=== PATIENT | female | born 1950 | race Caucasian/White ===

== ENCOUNTER 2017-10-13 07:16 | Outpatient (CLI) | payer OTHER ==
[~2017-10-13 07:16] MED LIST: ACTIGALL300 MG; LYRICA100 MG; PLAVIX75 MG; PROTONIX20 MG; SYNTHROID75 MCG; TUSSIONEX PENNKI5 ML PO; ULTRACET PO; XANAX XR0.5 MG; ZETIA10 MG
== END 2017-10-13 07:25 | disposition home or self-care (01) ==
LOC: MAMO-SONO 07:16
DX: R10.31 Right lower quadrant pain (principal); E07.89 Other specified disorders of thyroid; I65.29 Occlusion and stenosis of unspecified carotid artery; E78.2 Mixed hyperlipidemia; E03.8 Other specified hypothyroidism; K59.09 Other constipation; R10.0 Acute abdomen; R10.11 Right upper quadrant pain; R10.13 Epigastric pain; D64.89 Other specified anemias; M81.0 Age-related osteoporosis without current pathological fracture; M62.838 Other muscle spasm; M51.37 Other intervertebral disc degeneration, lumbosacral region; M51.27 Other intervertebral disc displacement, lumbosacral region; Z68.26 Body mass index [BMI] 26.0-26.9, adult

== ENCOUNTER 2018-02-09 10:24 | Outpatient (CLI) | payer OTHER | END 2018-02-09 19:27 | disposition home or self-care (01) | LOC: LAB 10:24 | DX: I65.29 Occlusion and stenosis of unspecified carotid artery (principal); E78.2 Mixed hyperlipidemia; E03.8 Other specified hypothyroidism; K59.09 Other constipation; R10.0 Acute abdomen; D64.89 Other specified anemias; M81.0 Age-related osteoporosis without current pathological fracture; M62.838 Other muscle spasm; M51.37 Other intervertebral disc degeneration, lumbosacral region; M51.27 Other intervertebral disc displacement, lumbosacral region; Z68.26 Body mass index [BMI] 26.0-26.9, adult; R80.8 Other proteinuria; N18.2 Chronic kidney disease, stage 2 (mild); Z80.3 Family history of malignant neoplasm of breast; D47.2 Monoclonal gammopathy; I10 Essential (primary) hypertension; I65.21 Occlusion and stenosis of right carotid artery; D51.1 Vitamin B12 deficiency anemia due to selective vitamin B12 malabsorption with proteinuria; D50.8 Other iron deficiency anemias; D51.8 Other vitamin B12 deficiency anemias; C90.00 Multiple myeloma not having achieved remission ==

== ENCOUNTER 2018-02-15 11:42 | Outpatient (CLI) | payer OTHER | END 2018-02-15 15:00 | disposition home or self-care (01) | LOC: LAB 11:42 | DX: I65.29 Occlusion and stenosis of unspecified carotid artery (principal); E78.2 Mixed hyperlipidemia; E03.8 Other specified hypothyroidism; K59.09 Other constipation; R10.11 Right upper quadrant pain; R10.31 Right lower quadrant pain; D64.89 Other specified anemias; M81.0 Age-related osteoporosis without current pathological fracture; M62.838 Other muscle spasm; M51.37 Other intervertebral disc degeneration, lumbosacral region; M51.27 Other intervertebral disc displacement, lumbosacral region; Z68.26 Body mass index [BMI] 26.0-26.9, adult; R80.8 Other proteinuria; N18.2 Chronic kidney disease, stage 2 (mild) ==

== ENCOUNTER 2018-04-22 11:08 | Outpatient (CLI) | payer OTHER | END 2018-04-22 11:22 | disposition home or self-care (01) | LOC: MAMO-SONO 11:08 | DX: Z12.31 Encounter for screening mammogram for malignant neoplasm of breast (principal); Z87.898 Personal history of other specified conditions; N63.10 Unspecified lump in the right breast, unspecified quadrant; N63.20 Unspecified lump in the left breast, unspecified quadrant; D51.1 Vitamin B12 deficiency anemia due to selective vitamin B12 malabsorption with proteinuria; I65.21 Occlusion and stenosis of right carotid artery; I10 Essential (primary) hypertension; E03.8 Other specified hypothyroidism; D47.2 Monoclonal gammopathy; Z80.3 Family history of malignant neoplasm of breast ==

== ENCOUNTER 2018-06-10 10:29 | Outpatient (CLI) | payer OTHER | END 2018-06-10 13:11 | disposition home or self-care (01) | LOC: LAB 10:29 | DX: R80.3 Bence Jones proteinuria (principal); N18.2 Chronic kidney disease, stage 2 (mild); R80.8 Other proteinuria; I10 Essential (primary) hypertension; D64.89 Other specified anemias; N18.3 Chronic kidney disease, stage 3 (moderate); E10.9 Type 1 diabetes mellitus without complications; E21.2 Other hyperparathyroidism; E83.39 Other disorders of phosphorus metabolism; E55.9 Vitamin D deficiency, unspecified ==

== ENCOUNTER 2018-06-10 12:09 | Outpatient (CLI) | payer OTHER | END 2018-06-10 16:30 | disposition home or self-care (01) | LOC: RAD 12:09 | DX: R80.8 Other proteinuria (principal); K76.0 Fatty (change of) liver, not elsewhere classified; M81.0 Age-related osteoporosis without current pathological fracture; M54.6 Pain in thoracic spine; M47.816 Spondylosis without myelopathy or radiculopathy, lumbar region ==

== ENCOUNTER 2018-09-17 09:30 | Outpatient (CLI) | payer OTHER | END 2018-09-17 17:01 | disposition home or self-care (01) | LOC: LAB 09:30 | DX: E03.8 Other specified hypothyroidism (principal); I10 Essential (primary) hypertension; Z80.3 Family history of malignant neoplasm of breast; I65.21 Occlusion and stenosis of right carotid artery; D51.1 Vitamin B12 deficiency anemia due to selective vitamin B12 malabsorption with proteinuria; D50.8 Other iron deficiency anemias; C90.00 Multiple myeloma not having achieved remission; D47.2 Monoclonal gammopathy ==

== ENCOUNTER → 2018-09-21 | Emergency (ER) | payer OTHER ==
[~2018-09-21] VITALS: Ht 160 cm; Wt 68.0 kg
== END | disposition home or self-care (01) ==
LOC: ER 19:34
DX: J06.9 Acute upper respiratory infection, unspecified (principal)

== ENCOUNTER 2019-03-25 12:50 | Outpatient (CLI) | payer OTHER | END 2019-03-25 12:55 | disposition home or self-care (01) | LOC: LAB 12:50 | DX: N20.0 Calculus of kidney (principal) ==

== ENCOUNTER 2019-03-31 09:48 | Outpatient (CLI) | payer OTHER | END 2019-03-31 10:04 | disposition home or self-care (01) | LOC: MRI 09:48 | DX: C71.9 Malignant neoplasm of brain, unspecified (principal); G30.1 Alzheimer's disease with late onset | CPT/HCPCS: 70553; A9575 ==

== ENCOUNTER → 2019-04-30 09:20 | Outpatient (CLI) | payer OTHER | END | disposition home or self-care (01) | LOC: LAB 09:20 | DX: D50.8 Other iron deficiency anemias (principal); I10 Essential (primary) hypertension; Z80.3 Family history of malignant neoplasm of breast; D47.2 Monoclonal gammopathy; E03.8 Other specified hypothyroidism; I65.21 Occlusion and stenosis of right carotid artery; D51.1 Vitamin B12 deficiency anemia due to selective vitamin B12 malabsorption with proteinuria; D51.8 Other vitamin B12 deficiency anemias; E55.9 Vitamin D deficiency, unspecified; K90.89 Other intestinal malabsorption; R97.0 Elevated carcinoembryonic antigen [CEA] ==

== ENCOUNTER 2019-05-09 10:56 | Outpatient (CLI) | payer OTHER | END 2019-05-09 11:08 | disposition home or self-care (01) | LOC: LAB 10:56 | DX: I65.29 Occlusion and stenosis of unspecified carotid artery (principal); I67.2 Cerebral atherosclerosis; E03.8 Other specified hypothyroidism; H11.32 Conjunctival hemorrhage, left eye; K59.00 Constipation, unspecified; N18.2 Chronic kidney disease, stage 2 (mild); R80.8 Other proteinuria; D64.89 Other specified anemias; M81.0 Age-related osteoporosis without current pathological fracture; M62.838 Other muscle spasm; M51.37 Other intervertebral disc degeneration, lumbosacral region; M51.27 Other intervertebral disc displacement, lumbosacral region; D32.1 Benign neoplasm of spinal meninges; Z68.26 Body mass index [BMI] 26.0-26.9, adult; N39.0 Urinary tract infection, site not specified; E55.9 Vitamin D deficiency, unspecified; D55.0 Anemia due to glucose-6-phosphate dehydrogenase [G6PD] deficiency; D50.8 Other iron deficiency anemias ==

== ENCOUNTER 2019-06-29 13:37 | Outpatient (CLI) | payer OTHER | END 2019-06-29 13:44 | disposition home or self-care (01) | LOC: MAMO-SONO 13:37 | DX: I67.2 Cerebral atherosclerosis (principal); E78.2 Mixed hyperlipidemia; E03.8 Other specified hypothyroidism; H11.32 Conjunctival hemorrhage, left eye; K59.00 Constipation, unspecified; R10.13 Epigastric pain; R10.812 Left upper quadrant abdominal tenderness; I65.29 Occlusion and stenosis of unspecified carotid artery; N18.2 Chronic kidney disease, stage 2 (mild); R80.8 Other proteinuria; D64.89 Other specified anemias; M81.0 Age-related osteoporosis without current pathological fracture; M62.838 Other muscle spasm; M51.37 Other intervertebral disc degeneration, lumbosacral region; M51.27 Other intervertebral disc displacement, lumbosacral region; D32.1 Benign neoplasm of spinal meninges; Z68.25 Body mass index [BMI] 25.0-25.9, adult; N60.21 Fibroadenosis of right breast; N60.22 Fibroadenosis of left breast; Z12.31 Encounter for screening mammogram for malignant neoplasm of breast ==

== ENCOUNTER 2019-07-01 09:55 | Outpatient (CLI) | payer OTHER | END 2019-07-01 10:00 | disposition home or self-care (01) | LOC: SONOGRAMA 09:55 | DX: R10.812 Left upper quadrant abdominal tenderness (principal); N18.2 Chronic kidney disease, stage 2 (mild); M51.27 Other intervertebral disc displacement, lumbosacral region; M51.37 Other intervertebral disc degeneration, lumbosacral region; K59.09 Other constipation; E03.8 Other specified hypothyroidism; E78.2 Mixed hyperlipidemia; H11.32 Conjunctival hemorrhage, left eye; R10.13 Epigastric pain; R80.8 Other proteinuria; D64.89 Other specified anemias; I65.29 Occlusion and stenosis of unspecified carotid artery; M81.0 Age-related osteoporosis without current pathological fracture; M62.838 Other muscle spasm; I67.2 Cerebral atherosclerosis; D32.1 Benign neoplasm of spinal meninges; Z68.25 Body mass index [BMI] 25.0-25.9, adult; N60.21 Fibroadenosis of right breast; N60.22 Fibroadenosis of left breast ==

== ENCOUNTER 2019-07-01 10:27 | Outpatient (CLI) | payer OTHER | END 2019-07-01 10:33 | disposition home or self-care (01) | LOC: LAB 10:27 | DX: I67.2 Cerebral atherosclerosis (principal); I65.29 Occlusion and stenosis of unspecified carotid artery; E78.2 Mixed hyperlipidemia; E03.8 Other specified hypothyroidism; H11.32 Conjunctival hemorrhage, left eye; K59.00 Constipation, unspecified; R10.13 Epigastric pain; R10.812 Left upper quadrant abdominal tenderness; N18.2 Chronic kidney disease, stage 2 (mild); R80.8 Other proteinuria; D64.89 Other specified anemias; M81.0 Age-related osteoporosis without current pathological fracture; M62.838 Other muscle spasm; M51.37 Other intervertebral disc degeneration, lumbosacral region; M51.27 Other intervertebral disc displacement, lumbosacral region; D32.1 Benign neoplasm of spinal meninges; Z68.25 Body mass index [BMI] 25.0-25.9, adult; N39.0 Urinary tract infection, site not specified; E16.8 Other specified disorders of pancreatic internal secretion; R10.84 Generalized abdominal pain ==

== ENCOUNTER 2019-07-12 10:01 | Outpatient (CLI) | payer OTHER | END 2019-07-12 15:00 | disposition home or self-care (01) | LOC: OFIC 805 10:01 | DX: H93.13 Tinnitus, bilateral (principal) ==

== ENCOUNTER 2019-09-06 09:23 | Outpatient (CLI) | payer OTHER | END 2019-09-06 16:00 | disposition home or self-care (01) | LOC: OFIC 805 09:23 | DX: H93.13 Tinnitus, bilateral (principal); H90.3 Sensorineural hearing loss, bilateral ==

== ENCOUNTER 2019-10-04 09:10 | Outpatient (CLI) | payer OTHER | END 2019-10-04 15:03 | disposition home or self-care (01) | LOC: OFIC 805 09:10 | PROVIDERS: ATTEND Otolaryngology | DX: H90.0 Conductive hearing loss, bilateral (principal) ==

== ENCOUNTER → 2019-10-07 09:39 | Outpatient (CLI) | payer OTHER | END | disposition home or self-care (01) | LOC: LAB 09:39 | PROVIDERS: ATTEND Internal Medicine | DX: I65.29 Occlusion and stenosis of unspecified carotid artery (principal); I67.2 Cerebral atherosclerosis; E78.2 Mixed hyperlipidemia; E03.8 Other specified hypothyroidism; H11.32 Conjunctival hemorrhage, left eye; K59.00 Constipation, unspecified; R10.13 Epigastric pain; R10.812 Left upper quadrant abdominal tenderness; N18.2 Chronic kidney disease, stage 2 (mild); R80.8 Other proteinuria; D64.89 Other specified anemias; M81.0 Age-related osteoporosis without current pathological fracture; M62.838 Other muscle spasm; M51.37 Other intervertebral disc degeneration, lumbosacral region; M51.27 Other intervertebral disc displacement, lumbosacral region; D32.1 Benign neoplasm of spinal meninges; Z68.25 Body mass index [BMI] 25.0-25.9, adult; N39.0 Urinary tract infection, site not specified; E16.8 Other specified disorders of pancreatic internal secretion; R10.84 Generalized abdominal pain ==

== ENCOUNTER 2019-10-18 10:40 | Outpatient (CLI) | payer OTHER | END 2019-10-18 10:44 | disposition home or self-care (01) | LOC: SONOGRAMA 10:40 → MAMO-SONO 11:15 | PROVIDERS: ATTEND Otolaryngology | DX: E03.8 Other specified hypothyroidism (principal); E04.2 Nontoxic multinodular goiter ==

== ENCOUNTER → 2019-10-26 11:14 | Outpatient (CLI) | payer OTHER | END | disposition home or self-care (01) | LOC: LAB 11:14 | PROVIDERS: ATTEND Psychiatry & Neurology Neurology | DX: D50.8 Other iron deficiency anemias (principal); D55.0 Anemia due to glucose-6-phosphate dehydrogenase [G6PD] deficiency; N39.0 Urinary tract infection, site not specified ==

== ENCOUNTER → 2019-11-08 09:24 | Outpatient (CLI) | payer OTHER | END | disposition home or self-care (01) | LOC: LAB 09:24 | PROVIDERS: ATTEND Internal Medicine Hematology & Oncology | DX: D50.8 Other iron deficiency anemias (principal); I10 Essential (primary) hypertension; D51.8 Other vitamin B12 deficiency anemias; D47.2 Monoclonal gammopathy; C90.00 Multiple myeloma not having achieved remission; Z80.3 Family history of malignant neoplasm of breast; E03.8 Other specified hypothyroidism; I65.21 Occlusion and stenosis of right carotid artery; E55.9 Vitamin D deficiency, unspecified; D51.1 Vitamin B12 deficiency anemia due to selective vitamin B12 malabsorption with proteinuria ==

== ENCOUNTER 2019-11-23 10:17 | Outpatient (CLI) | payer OTHER | END 2019-11-23 10:25 | disposition home or self-care (01) | LOC: RAD 10:17 | DX: M17.0 Bilateral primary osteoarthritis of knee (principal) ==

== ENCOUNTER 2019-12-06 09:12 | Outpatient (CLI) | payer OTHER | END 2019-12-06 09:21 | disposition home or self-care (01) | LOC: MRI 09:12 | PROVIDERS: ATTEND Specialist | DX: M17.12 Unilateral primary osteoarthritis, left knee (principal) | CPT/HCPCS: 73718; 73721 ==

== ENCOUNTER → 2020-01-19 09:47 | Outpatient (CLI) | payer OTHER | END | disposition home or self-care (01) | LOC: LAB 09:47 | PROVIDERS: ATTEND Obstetrics & Gynecology | DX: N39.0 Urinary tract infection, site not specified (principal) ==

== ENCOUNTER 2020-02-24 09:43 | Outpatient (CLI) | payer OTHER | END 2020-02-24 09:53 | disposition home or self-care (01) | LOC: LAB 09:43 | DX: D50.8 Other iron deficiency anemias (principal); D55.0 Anemia due to glucose-6-phosphate dehydrogenase [G6PD] deficiency; N39.0 Urinary tract infection, site not specified ==

== ENCOUNTER → 2020-03-20 10:42 | Outpatient (CLI) | payer OTHER | END | disposition home or self-care (01) | LOC: LAB 10:42 | PROVIDERS: ATTEND Internal Medicine | DX: D64.89 Other specified anemias (principal); R10.84 Generalized abdominal pain; I65.29 Occlusion and stenosis of unspecified carotid artery; I67.2 Cerebral atherosclerosis; E78.2 Mixed hyperlipidemia; E03.8 Other specified hypothyroidism; H11.32 Conjunctival hemorrhage, left eye; R74.8 Abnormal levels of other serum enzymes; R94.5 Abnormal results of liver function studies; N18.2 Chronic kidney disease, stage 2 (mild); R80.8 Other proteinuria; M81.0 Age-related osteoporosis without current pathological fracture; M62.838 Other muscle spasm; M51.27 Other intervertebral disc displacement, lumbosacral region; D32.1 Benign neoplasm of spinal meninges; Z68.25 Body mass index [BMI] 25.0-25.9, adult; N39.0 Urinary tract infection, site not specified; R73.01 Impaired fasting glucose ==

== ENCOUNTER 2020-03-29 09:36 | Outpatient (CLI) | payer OTHER | END 2020-03-29 15:00 | disposition home or self-care (01) | LOC: LAB 09:36 | PROVIDERS: ATTEND Internal Medicine | DX: E03.8 Other specified hypothyroidism (principal); I65.29 Occlusion and stenosis of unspecified carotid artery; I67.2 Cerebral atherosclerosis; E78.2 Mixed hyperlipidemia; H11.32 Conjunctival hemorrhage, left eye; K59.09 Other constipation; R74.8 Abnormal levels of other serum enzymes; R94.5 Abnormal results of liver function studies; N18.2 Chronic kidney disease, stage 2 (mild); R80.8 Other proteinuria; D64.89 Other specified anemias; M81.0 Age-related osteoporosis without current pathological fracture; M62.838 Other muscle spasm; M51.37 Other intervertebral disc degeneration, lumbosacral region; M51.27 Other intervertebral disc displacement, lumbosacral region; D32.1 Benign neoplasm of spinal meninges; Z68.25 Body mass index [BMI] 25.0-25.9, adult; N39.0 Urinary tract infection, site not specified; R73.01 Impaired fasting glucose; R10.84 Generalized abdominal pain ==

== ENCOUNTER → 2020-04-26 11:20 | Outpatient (CLI) | payer OTHER | END | disposition home or self-care (01) | LOC: LAB 11:20 | PROVIDERS: ATTEND Psychiatry & Neurology Neurology | DX: D50.8 Other iron deficiency anemias (principal); D55.0 Anemia due to glucose-6-phosphate dehydrogenase [G6PD] deficiency; N39.0 Urinary tract infection, site not specified ==

== ENCOUNTER 2020-05-16 10:40 | Outpatient (CLI) | payer OTHER | END 2020-05-16 10:47 | disposition home or self-care (01) | LOC: LAB 10:40 | PROVIDERS: ATTEND Internal Medicine | DX: D64.89 Other specified anemias (principal); I65.29 Occlusion and stenosis of unspecified carotid artery; I67.2 Cerebral atherosclerosis; E78.2 Mixed hyperlipidemia; E03.8 Other specified hypothyroidism; H11.32 Conjunctival hemorrhage, left eye; K59.09 Other constipation; R74.8 Abnormal levels of other serum enzymes; R94.5 Abnormal results of liver function studies; N18.2 Chronic kidney disease, stage 2 (mild); R80.8 Other proteinuria; M81.0 Age-related osteoporosis without current pathological fracture; M62.838 Other muscle spasm; M51.37 Other intervertebral disc degeneration, lumbosacral region; M51.27 Other intervertebral disc displacement, lumbosacral region; D32.1 Benign neoplasm of spinal meninges; Z68.25 Body mass index [BMI] 25.0-25.9, adult; N39.0 Urinary tract infection, site not specified; E53.8 Deficiency of other specified B group vitamins; E55.9 Vitamin D deficiency, unspecified ==

== ENCOUNTER 2020-07-03 12:14 | Outpatient (CLI) | payer OTHER | END 2020-07-03 12:20 | disposition home or self-care (01) | LOC: LAB 12:14 | PROVIDERS: ATTEND Radiology Diagnostic Radiology | DX: N20.0 Calculus of kidney (principal) ==

== ENCOUNTER 2020-07-11 08:20 | Outpatient (CLI) | payer OTHER | END 2020-07-11 08:37 | disposition home or self-care (01) | LOC: MRI 08:20 | PROVIDERS: ATTEND Psychiatry & Neurology Neurology | DX: C71.8 Malignant neoplasm of overlapping sites of brain (principal); G30.1 Alzheimer's disease with late onset | CPT/HCPCS: 70553; A9575 ==

== ENCOUNTER → 2020-07-19 | Emergency (ER) | payer OTHER ==
[~2020-07-19] VITALS: Ht 160 cm; Wt 67.6 kg
[~2020-07-19] MED LIST changes: +CELEBREX100 MG PO
== END | disposition home or self-care (01) ==
LOC: ER 12:31
DX: M65.222 Calcific tendinitis, left upper arm (principal); S60.212S Contusion of left wrist, sequela; W18.09XS Striking against other object with subsequent fall, sequela

== ENCOUNTER → 2020-08-08 09:36 | Outpatient (CLI) | payer OTHER | END | disposition home or self-care (01) | LOC: LAB 09:36 | PROVIDERS: ATTEND Podiatrist | DX: K71.6 Toxic liver disease with hepatitis, not elsewhere classified (principal) ==

== ENCOUNTER 2020-09-04 08:43 | Outpatient (CLI) | payer OTHER | END 2020-09-04 08:52 | disposition home or self-care (01) | LOC: LAB 08:43 | PROVIDERS: ATTEND Internal Medicine | DX: I65.23 Occlusion and stenosis of bilateral carotid arteries (principal); I67.2 Cerebral atherosclerosis; E78.2 Mixed hyperlipidemia; E03.8 Other specified hypothyroidism; H11.32 Conjunctival hemorrhage, left eye; K59.09 Other constipation; R78.4 Finding of other drugs of addictive potential in blood; R94.5 Abnormal results of liver function studies; N18.2 Chronic kidney disease, stage 2 (mild); R80.8 Other proteinuria; D64.89 Other specified anemias; M81.0 Age-related osteoporosis without current pathological fracture; M62.838 Other muscle spasm; M51.37 Other intervertebral disc degeneration, lumbosacral region; M51.27 Other intervertebral disc displacement, lumbosacral region; D32.1 Benign neoplasm of spinal meninges; Z68.25 Body mass index [BMI] 25.0-25.9, adult; N39.0 Urinary tract infection, site not specified; E53.8 Deficiency of other specified B group vitamins; E55.9 Vitamin D deficiency, unspecified ==

== ENCOUNTER 2020-09-12 08:11 | Outpatient (CLI) | payer OTHER | END 2020-09-12 08:25 | disposition home or self-care (01) | LOC: SONOGRAMA 08:11 | PROVIDERS: ATTEND Internal Medicine | DX: M79.672 Pain in left foot (principal); K63.5 Polyp of colon ==

== ENCOUNTER → 2020-11-02 08:33 | Outpatient (CLI) | payer OTHER | END | disposition home or self-care (01) | LOC: LAB 08:33 | PROVIDERS: ATTEND Psychiatry & Neurology Neurology | DX: N39.0 Urinary tract infection, site not specified (principal); D55.0 Anemia due to glucose-6-phosphate dehydrogenase [G6PD] deficiency; D50.8 Other iron deficiency anemias ==

== ENCOUNTER → 2020-11-03 09:08 | Outpatient (CLI) | payer OTHER | END | disposition home or self-care (01) | LOC: LAB 09:08 | PROVIDERS: ATTEND Orthopaedic Surgery | DX: E21.2 Other hyperparathyroidism (principal); E55.9 Vitamin D deficiency, unspecified; M85.9 Disorder of bone density and structure, unspecified; E88.89 Other specified metabolic disorders; E56.1 Deficiency of vitamin K ==

== ENCOUNTER 2021-01-18 08:50 | Outpatient (CLI) | payer OTHER | END 2021-01-18 09:06 | disposition home or self-care (01) | LOC: RAD 08:50 | PROVIDERS: ATTEND Orthopaedic Surgery | DX: M25.561 Pain in right knee (principal); M25.562 Pain in left knee; M79.672 Pain in left foot ==

== ENCOUNTER → 2021-01-25 09:14 | Outpatient (CLI) | payer OTHER | END | disposition home or self-care (01) | LOC: LAB 09:14 | PROVIDERS: ATTEND Internal Medicine Gastroenterology | DX: R74.01 Elevation of levels of liver transaminase levels (principal); Z12.11 Encounter for screening for malignant neoplasm of colon ==

== ENCOUNTER → 2021-02-01 09:39 | Outpatient (CLI) | payer OTHER | END | disposition home or self-care (01) | LOC: LAB 09:39 | PROVIDERS: ATTEND Orthopaedic Surgery | DX: I10 Essential (primary) hypertension (principal); R07.89 Other chest pain; E88.89 Other specified metabolic disorders; D68.8 Other specified coagulation defects; A49.02 Methicillin resistant Staphylococcus aureus infection, unspecified site; N39.0 Urinary tract infection, site not specified; D64.89 Other specified anemias; Z76.89 Persons encountering health services in other specified circumstances ==

== ENCOUNTER → 2021-02-05 08:31 | Outpatient (CLI) | payer OTHER | END | disposition home or self-care (01) | LOC: LAB 08:31 | PROVIDERS: ATTEND Internal Medicine | DX: I67.2 Cerebral atherosclerosis (principal); I65.29 Occlusion and stenosis of unspecified carotid artery; E78.2 Mixed hyperlipidemia; E03.8 Other specified hypothyroidism; H11.32 Conjunctival hemorrhage, left eye; K59.00 Constipation, unspecified; R74.8 Abnormal levels of other serum enzymes; R94.5 Abnormal results of liver function studies; K82.4 Cholesterolosis of gallbladder; N18.2 Chronic kidney disease, stage 2 (mild); R80.8 Other proteinuria; D64.89 Other specified anemias; M62.838 Other muscle spasm; M51.37 Other intervertebral disc degeneration, lumbosacral region; M51.27 Other intervertebral disc displacement, lumbosacral region; S83.242S Other tear of medial meniscus, current injury, left knee, sequela; D32.1 Benign neoplasm of spinal meninges; Z68.26 Body mass index [BMI] 26.0-26.9, adult ==

== ENCOUNTER 2021-03-06 11:27 | Emergency (ER) | payer OTHER ==
[~2021-03-06] VITALS: Ht 160 cm; Wt 66.2 kg
[2021-03-06] MEDS ORDERED: ZITHROMAX500 MG PO (15:41)
[2021-03-06] MEDS ORDERED: TESSALON PERLE100 M1 PO (15:41)
== END 2021-03-06 15:52 | disposition home or self-care (01) ==
LOC: ER 11:27
DX: B34.9 Viral infection, unspecified (principal); R05.9 Cough, unspecified; Z03.818 Encounter for observation for suspected exposure to other biological agents ruled out

== ENCOUNTER 2021-05-09 10:52 | Outpatient (CLI) | payer OTHER ==
[~2021-05-09 10:52] MED LIST changes: +TESSALON PERLE100 M1 PO; +ZITHROMAX500 MG PO
== END 2021-05-09 11:06 | disposition home or self-care (01) ==
LOC: RAD 10:52
PROVIDERS: ATTEND Orthopaedic Surgery
DX: S92.355K Nondisplaced fracture of fifth metatarsal bone, left foot, subsequent encounter for fracture with nonunion (principal)

== ENCOUNTER 2021-06-25 09:41 | Outpatient (CLI) | payer OTHER | END 2021-06-25 23:00 | disposition home or self-care (01) | LOC: LAB 09:41 | DX: D55.0 Anemia due to glucose-6-phosphate dehydrogenase [G6PD] deficiency (principal); N39.0 Urinary tract infection, site not specified; E03.9 Hypothyroidism, unspecified; D50.8 Other iron deficiency anemias ==

== ENCOUNTER 2021-07-02 09:08 | Outpatient (CLI) | payer OTHER | END 2021-07-02 12:12 | disposition home or self-care (01) | LOC: LAB 09:08 | PROVIDERS: ATTEND Internal Medicine Hematology & Oncology | DX: E03.9 Hypothyroidism, unspecified (principal); N95.1 Menopausal and female climacteric states; L68.0 Hirsutism; D50.8 Other iron deficiency anemias; Z90.3 Acquired absence of stomach [part of]; D47.2 Monoclonal gammopathy; E03.8 Other specified hypothyroidism; I10 Essential (primary) hypertension; I65.29 Occlusion and stenosis of unspecified carotid artery; D51.1 Vitamin B12 deficiency anemia due to selective vitamin B12 malabsorption with proteinuria; R97.0 Elevated carcinoembryonic antigen [CEA]; D51.8 Other vitamin B12 deficiency anemias ==

== ENCOUNTER 2021-07-11 07:20 | Outpatient (CLI) | payer OTHER | END 2021-07-11 07:21 | disposition home or self-care (01) | LOC: TOM 07:20 | PROVIDERS: ATTEND Internal Medicine Gastroenterology | DX: Z12.31 Encounter for screening mammogram for malignant neoplasm of breast (principal); R10.10 Upper abdominal pain, unspecified; K30 Functional dyspepsia; N64.4 Mastodynia ==

== ENCOUNTER 2021-07-22 09:37 | Outpatient (CLI) | payer OTHER | END 2021-07-22 09:51 | disposition home or self-care (01) | LOC: TOM 09:37 | PROVIDERS: ATTEND Internal Medicine Gastroenterology | DX: R10.10 Upper abdominal pain, unspecified (principal); K30 Functional dyspepsia | CPT/HCPCS: 74177; Q9965 ==

== ENCOUNTER 2021-08-12 09:58 | Outpatient (CLI) | payer OTHER | END 2021-08-12 09:59 | disposition home or self-care (01) | LOC: LAB 09:58 | PROVIDERS: ATTEND Internal Medicine | DX: I65.29 Occlusion and stenosis of unspecified carotid artery (principal); I67.2 Cerebral atherosclerosis; E78.2 Mixed hyperlipidemia; E03.8 Other specified hypothyroidism; H11.32 Conjunctival hemorrhage, left eye; K59.00 Constipation, unspecified; R74.8 Abnormal levels of other serum enzymes; R94.5 Abnormal results of liver function studies; K82.4 Cholesterolosis of gallbladder; N18.2 Chronic kidney disease, stage 2 (mild); R80.8 Other proteinuria; D64.9 Anemia, unspecified; G47.00 Insomnia, unspecified; M62.838 Other muscle spasm; M51.37 Other intervertebral disc degeneration, lumbosacral region; M51.27 Other intervertebral disc displacement, lumbosacral region; S83.242S Other tear of medial meniscus, current injury, left knee, sequela; M80.062 Age-related osteoporosis with current pathological fracture, left lower leg; D32.1 Benign neoplasm of spinal meninges; Z68.26 Body mass index [BMI] 26.0-26.9, adult ==

== ENCOUNTER 2021-08-13 12:20 | Outpatient (CLI) | payer OTHER | END 2021-08-13 12:26 | disposition home or self-care (01) | LOC: RAD 12:20 | PROVIDERS: ATTEND Orthopaedic Surgery | DX: S92.355K Nondisplaced fracture of fifth metatarsal bone, left foot, subsequent encounter for fracture with nonunion (principal) ==

== ENCOUNTER 2021-08-20 14:24 | Outpatient (CLI) | payer OTHER | END 2021-08-20 14:26 | disposition home or self-care (01) | LOC: RAD 14:24 | PROVIDERS: ATTEND Orthopaedic Surgery | DX: M25.532 Pain in left wrist (principal); M65.4 Radial styloid tenosynovitis [de Quervain] ==

== ENCOUNTER 2021-11-18 14:22 | Outpatient (CLI) | payer OTHER | END 2021-11-18 14:28 | disposition home or self-care (01) | LOC: RAD 14:22 | PROVIDERS: ATTEND Specialist | DX: R07.9 Chest pain, unspecified (principal); R05.9 Cough, unspecified ==

== ENCOUNTER 2021-11-19 07:11 | Outpatient (CLI) | payer OTHER | END 2021-11-19 07:45 | disposition home or self-care (01) | LOC: LAB 07:11 | PROVIDERS: ATTEND Specialist | DX: D50.9 Iron deficiency anemia, unspecified (principal); N28.9 Disorder of kidney and ureter, unspecified; D68.2 Hereditary deficiency of other clotting factors; E34.9 Endocrine disorder, unspecified; K75.9 Inflammatory liver disease, unspecified; B20 Human immunodeficiency virus [HIV] disease ==

== ENCOUNTER 2022-04-15 11:16 | Outpatient (CLI) | payer OTHER | END 2022-04-15 11:17 | disposition home or self-care (01) | LOC: LAB 11:16 | PROVIDERS: ATTEND Radiology Diagnostic Radiology | DX: R22.1 Localized swelling, mass and lump, neck (principal) ==

== ENCOUNTER 2022-04-23 07:43 | Outpatient (CLI) | payer OTHER | END 2022-04-23 07:47 | disposition home or self-care (01) | LOC: TOM 07:43 | PROVIDERS: ATTEND Otolaryngology | DX: R22.1 Localized swelling, mass and lump, neck (principal) | CPT/HCPCS: 70491; Q9965 ==

== ENCOUNTER 2022-06-26 10:40 | Outpatient (CLI) | payer OTHER | END 2022-06-26 10:43 | disposition home or self-care (01) | LOC: LAB 10:40 | PROVIDERS: ATTEND Internal Medicine Hematology & Oncology | DX: D50.8 Other iron deficiency anemias (principal); R79.9 Abnormal finding of blood chemistry, unspecified; I10 Essential (primary) hypertension; R74.02 Elevation of levels of lactic acid dehydrogenase [LDH]; K76.89 Other specified diseases of liver; E55.9 Vitamin D deficiency, unspecified; D47.2 Monoclonal gammopathy; C90.00 Multiple myeloma not having achieved remission; Z80.3 Family history of malignant neoplasm of breast; I65.21 Occlusion and stenosis of right carotid artery; D51.1 Vitamin B12 deficiency anemia due to selective vitamin B12 malabsorption with proteinuria; D51.3 Other dietary vitamin B12 deficiency anemia; E03.8 Other specified hypothyroidism; E10.9 Type 1 diabetes mellitus without complications; M81.0 Age-related osteoporosis without current pathological fracture ==

== ENCOUNTER 2022-08-04 09:03 | Outpatient (CLI) | payer OTHER | END 2022-08-04 09:10 | disposition home or self-care (01) | LOC: MAMO-SONO 09:03 | PROVIDERS: ATTEND Internal Medicine | DX: N60.21 Fibroadenosis of right breast (principal); N60.22 Fibroadenosis of left breast; I65.29 Occlusion and stenosis of unspecified carotid artery; I67.2 Cerebral atherosclerosis; E78.2 Mixed hyperlipidemia; E03.8 Other specified hypothyroidism; H11.32 Conjunctival hemorrhage, left eye; K59.00 Constipation, unspecified; R74.8 Abnormal levels of other serum enzymes; R94.5 Abnormal results of liver function studies; K82.4 Cholesterolosis of gallbladder; N18.2 Chronic kidney disease, stage 2 (mild); R80.8 Other proteinuria; D64.9 Anemia, unspecified; G47.00 Insomnia, unspecified; M62.838 Other muscle spasm; M51.37 Other intervertebral disc degeneration, lumbosacral region; M51.27 Other intervertebral disc displacement, lumbosacral region; S83.242S Other tear of medial meniscus, current injury, left knee, sequela; M80.062 Age-related osteoporosis with current pathological fracture, left lower leg; Z68.26 Body mass index [BMI] 26.0-26.9, adult ==

== ENCOUNTER 2022-09-10 13:15 | Emergency (ER) | payer OTHER ==
[~2022-09-10] VITALS: Ht 160 cm; Wt 66.7 kg
== END 2022-09-10 16:10 | disposition home or self-care (01) ==
LOC: ER 13:15
DX: H92.01 Otalgia, right ear (principal); Z88.2 Allergy status to sulfonamides; Z88.6 Allergy status to analgesic agent

== ENCOUNTER 2023-01-01 07:04 | Outpatient (CLI) | payer OTHER | END 2023-01-01 07:09 | disposition home or self-care (01) | LOC: SONOGRAMA 07:04 | PROVIDERS: ATTEND Internal Medicine | DX: K59.00 Constipation, unspecified (principal); R74.8 Abnormal levels of other serum enzymes; K82.4 Cholesterolosis of gallbladder; N18.2 Chronic kidney disease, stage 2 (mild); R80.8 Other proteinuria ==

== ENCOUNTER → 2023-01-05 10:08 | Outpatient (CLI) | payer OTHER ==
[~2023-01-05 10:08] MED LIST changes: +ALPRAZOLAM ODT0.5 MG PO; +LYRICA100 MG PO; +PLAVIX75 MG PO; +VITAMIN C100 MG PO; +VITAMIN D310 MCG/1 M PO; +ZETIA PO
== END | disposition home or self-care (01) ==
LOC: LAB 10:08
PROVIDERS: ATTEND Internal Medicine Hematology & Oncology
DX: D47.2 Monoclonal gammopathy (principal); E03.8 Other specified hypothyroidism; I10 Essential (primary) hypertension; I65.21 Occlusion and stenosis of right carotid artery; D51.1 Vitamin B12 deficiency anemia due to selective vitamin B12 malabsorption with proteinuria; D50.8 Other iron deficiency anemias; C90.00 Multiple myeloma not having achieved remission; Z80.3 Family history of malignant neoplasm of breast

== ENCOUNTER → 2023-02-13 08:20 | Outpatient (CLI) | payer OTHER ==
[2023-02-13 09:44] LABS: HEMATOCRIT 36.3 % (36.0-45.00); MEAN CELL VOLUME 89.3 fL (80.00-100.00); MEAN CORPUSCULAR HEMOGLOBIN 29.4 pg (27.00-32.0); PLATELET COUNT 219 K/uL (150-450); RED BLOOD COUNT 4.07 M/uL (4.00-6.00); RED CELL DISTRIBUTION WIDTH 13.2 % (11.5-14.5)
[2023-02-13 10:34] LABS: ALBUMIN 3.4 gm/dL (3.4-5.0); BILIRUBIN TOTAL 0.42 mg/dL (0.3-1.2); CALCIUM 8.6 mg/dL (8.5-10.1); CREATININE SERUM 0.89 mg/dL (0.55-1.02); GFR 62.35; GLOBULINA 2.8 G/DL (2.4-3.5); POTASSIUM 4.39 mEq/L (3.5-5.1); TOTAL PROTEIN 6.2 gm/dL (6.4-8.2); TSH 0.18 uIU/mL (0.358-3.74)
[2023-02-13 12:14] LABS: FOLIC ACID > 20.00 ng/ml (4.78-20)
[2023-02-13 13:01] LABS: PLATELET ESTIMATE NORMAL (NORMAL)
[2023-02-13 13:29] LABS: MANUAL PLATELET COUNT 250
== END | disposition home or self-care (01) ==
LOC: LAB 08:20
PROVIDERS: ATTEND Internal Medicine Hematology & Oncology
DX: R79.9 Abnormal finding of blood chemistry, unspecified (principal); I10 Essential (primary) hypertension; R74.02 Elevation of levels of lactic acid dehydrogenase [LDH]; K76.89 Other specified diseases of liver; D63.8 Anemia in other chronic diseases classified elsewhere; D55.0 Anemia due to glucose-6-phosphate dehydrogenase [G6PD] deficiency; D51.8 Other vitamin B12 deficiency anemias; D51.1 Vitamin B12 deficiency anemia due to selective vitamin B12 malabsorption with proteinuria; D51.0 Vitamin B12 deficiency anemia due to intrinsic factor deficiency; E06.3 Autoimmune thyroiditis; Z80.3 Family history of malignant neoplasm of breast; D47.2 Monoclonal gammopathy; I65.21 Occlusion and stenosis of right carotid artery; E55.9 Vitamin D deficiency, unspecified; D51.3 Other dietary vitamin B12 deficiency anemia; E03.8 Other specified hypothyroidism; Z88.2 Allergy status to sulfonamides; Z88.6 Allergy status to analgesic agent

== ENCOUNTER 2023-02-13 08:54 | Outpatient (CLI) | payer OTHER | END 2023-02-13 09:03 | disposition home or self-care (01) | LOC: SONOGRAMA 08:54 | PROVIDERS: ATTEND Internal Medicine Hematology & Oncology | DX: E04.2 Nontoxic multinodular goiter (principal); R59.0 Localized enlarged lymph nodes ==

== ENCOUNTER 2024-05-27 10:23 | Outpatient (CLI) | payer OTHER ==
[2024-05-27 11:13] LABS: HEMATOCRIT 37.6 % (36.0-45.00); HEMOGLOBIN 12.7 g/dL (12.0-15.00); MEAN CELL VOLUME 88.7 fL (80.00-100.00); MEAN CORPUSCULAR HGB CONC 33.8 g/dl (32.0-36.0); PLATELET COUNT 274 K/uL (150-450); RED BLOOD COUNT 4.24 M/uL (4.00-6.00); RED CELL DISTRIBUTION WIDTH 13.7 % (11.5-14.5)
[2024-05-27 12:01] LABS: % SATURACION 19.3 % (15-50); ALBUMIN 3.6 gm/dL (3.4-5.0); BILIRUBIN TOTAL 0.38 mg/dL (0.3-1.2); CALCIUM 9.1 mg/dL (8.5-10.1); CREATININE SERUM 0.89 mg/dL (0.55-1.02); FERRITIN 53.5 NG/ML (8-252); GFR 62.17; POTASSIUM 4.61 mEq/L (3.5-5.1); TOTAL PROTEIN 6.6 gm/dL (6.4-8.2)
[2024-05-27 13:00] LABS: MANUAL PLATELET COUNT 404
[2024-05-27 13:07] LABS: PLATELET ESTIMATE NORMAL (NORMAL)
[2024-05-27 14:32] LABS: FOLIC ACID > 20.00 ng/ml (4.78-20); VITAMIN D3 25 HYDROXY 45.92 ng/ml (30-120)
== END 2024-05-27 10:34 | disposition home or self-care (01) ==
LOC: LAB 10:23
PROVIDERS: ATTEND Internal Medicine Hematology & Oncology
DX: D50.8 Other iron deficiency anemias (principal); Z80.3 Family history of malignant neoplasm of breast; D47.2 Monoclonal gammopathy; I65.21 Occlusion and stenosis of right carotid artery; D51.1 Vitamin B12 deficiency anemia due to selective vitamin B12 malabsorption with proteinuria; E55.9 Vitamin D deficiency, unspecified; D51.9 Vitamin B12 deficiency anemia, unspecified; E03.8 Other specified hypothyroidism; I10 Essential (primary) hypertension; R79.9 Abnormal finding of blood chemistry, unspecified; R74.02 Elevation of levels of lactic acid dehydrogenase [LDH]; K76.89 Other specified diseases of liver

== ENCOUNTER 2024-05-31 12:41 | Outpatient (CLI) | payer OTHER | END 2024-05-31 12:44 | disposition home or self-care (01) | LOC: TOM 12:41 | PROVIDERS: ATTEND Internal Medicine | DX: K59.00 Constipation, unspecified (principal); R74.8 Abnormal levels of other serum enzymes; I65.29 Occlusion and stenosis of unspecified carotid artery; I67.2 Cerebral atherosclerosis; I70.0 Atherosclerosis of aorta; E78.2 Mixed hyperlipidemia; E03.8 Other specified hypothyroidism; J06.0 Acute laryngopharyngitis; K82.4 Cholesterolosis of gallbladder; N18.2 Chronic kidney disease, stage 2 (mild); R80.8 Other proteinuria; N13.30 Unspecified hydronephrosis; N60.21 Fibroadenosis of right breast; N60.22 Fibroadenosis of left breast; G47.00 Insomnia, unspecified; F41.9 Anxiety disorder, unspecified; M51.379 Other intervertebral disc degeneration, lumbosacral region without mention of lumbar back pain or lower extremity pain; M51.27 Other intervertebral disc displacement, lumbosacral region; S83.242S Other tear of medial meniscus, current injury, left knee, sequela; M80.062 Age-related osteoporosis with current pathological fracture, left lower leg; M72.2 Plantar fascial fibromatosis; M79.671 Pain in right foot; M25.562 Pain in left knee; M25.561 Pain in right knee; D32.1 Benign neoplasm of spinal meninges; Z68.26 Body mass index [BMI] 26.0-26.9, adult ==